=== PATIENT | female | born 1980 | race Caucasian/White ===

== ENCOUNTER 2017-06-26 18:31 | Emergency (ER) | payer MEDICAID ==
[~2017-06-26] VITALS: Ht 167.6 cm; Wt 66.0 kg
[~2017-06-26 18:31] MED LIST: IBUP1TAB7 PO; TYLE325T PO
[2017-06-26 18:36] VITALS: BP 140/77; PULSE 83; RESP 16; TEMP 98.1; O2SAT 99
[2017-06-26] MEDS ORDERED: TRAM50 PO (20:08)
[2017-06-26] MEDS ORDERED: CLIN300C5 PO (20:08)
--- NOTE | 2017-06-26 20:09 | PD ---
HPI Chief Complaint: Skin Problem Time Seen by Provider: 19:22 Travel History International Travel<30 days: No Contact w/Intl Traveler<30days: No Traveled to known affect area: No History of Present Illness HPI This is a 36-year-old female here with multiple pustules to her left hand. She reports she had similar episode in her right hand several weeks ago which spontaneously resolved. Over the last 2 days her left fourth digit became more painful and red prompting her visit today. She denies fever chills. No change in sensation or decreased range of motion. Denies any injury or trauma. Symptom severity is moderate. No aggravating or alleviating factors. PFSH Past Medical History Medical History: Denies Significant Hx Cancer: No Cardiovascular Problems: No Diabetes: No Diminished Hearing: No Endocrine: No Genitourinary: No Hepatitis: No Hiatal Hernia: No Immune Disorder: No Musculoskeletal: No Neurologic: No Psychiatric: No Reproductive: Yes Respiratory: No Immunizations Current: Yes Thyroid Disease: No Tetanus Vaccination: Unknown Influenza Vaccination: No ?: Not LMP: 06/07/17 Tubal Ligation: Yes Past Surgical History Abdominal Surgery: No AICD: No Cardiac Surgery: No Section: Yes Ear Surgery: No Endocrine Surgery: No Eye Surgery: No Genitourinary Surgery: No Gynecologic Surgery: Yes (C SECTION X 3) Joint Replacement: No Oral Surgery: No Pacemaker: No Thoracic Surgery: No Other Surgery: Yes Social History Alcohol Use: No Tobacco Use: No Substance Use: No Allergies-Medications (Allergen,Severity, Reaction): Coded Allergies: aspirin (Unverified Allergy, Severe, Anaphylaxis, 06/26/17) ibuprofen (Unverified Allergy, Intermediate, 06/26/17) diclofenac (Unverified Allergy, Unknown, 06/26/17) indomethacin (Unverified Allergy, Unknown, 06/26/17) meloxicam (Unverified Allergy, Unknown, 06/26/17) Reported Meds & Prescriptions Reported Meds & Active Scripts Active Tylenol (Acetaminophen) 325 Mg Tab 650 Mg PO Q6H PRN Reported Ibuprofen 800 Mg Tab 800 Mg PO ONCE PRN Review of Systems Except as stated in HPI: all other systems reviewed are Neg General / Constitutional: No: Fever Eyes: No: Visual changes HENT: No: Headaches Cardiovascular: No: Chest Pain or Discomfort Respiratory: No: Shortness of Breath Gastrointestinal: No: Abdominal Pain Genitourinary: No: Dysuria Musculoskeletal: No: Pain Neurologic: No: Weakness Physical Exam Narrative GENERAL: Alert and well-appearing 36-year-old female SKIN: Warm and dry. Multiple pustules to the left hand HEAD: Normocephalic. EYES: No scleral icterus. No injection or drainage. NECK: Supple, trachea midline. CARDIOVASCULAR: Regular rate and rhythm without murmurs, gallops, or rubs. RESPIRATORY: Breath sounds equal bilaterally. No accessory muscle use. GASTROINTESTINAL: Abdomen soft, non-tender, nondistended. MUSCULOSKELETAL: No cyanosis. Left hand: Multiple pustules to the left ring finger dorsal medial aspect with surrounding erythema and swelling. She is able to flex and extend the digit. Normal sensation. Brisk cap refill. BACK: Nontender without obvious deformity. No CVA tenderness. Data Data Last Documented VS Vital Signs Date Time Temp Pulse Resp B/P (MAP) Pulse Ox O2 Delivery O2 Flow Rate FiO2 06/26/17 18:36 98.1 83 16 140/77 (98) 99 MDM Medical Decision Making Medical Screen Exam Complete: Yes Emergency Medical Condition: Yes Differential Diagnosis Cellulitis, folliculitis, abscess, cellulitis Narrative Course 36-year-old female here with multiple pustules to left hand. She is nontoxic appearing. She has full range of motion of the fingers. Normal sensation. She will be treated with antibiotics. She is instructed to follow-up with her primary doctor. Diagnosis Primary Impression: Cellulitis Qualified Codes: L03.90 - Cellulitis, unspecified Referrals: Primary Care Physician Additional Instructions: Antibiotics as directed. Follow-up with your primary doctor. Return if you have new or worsening symptoms. Scripts Tramadol (Ultram) 50 Mg Tab 50 MG PO Q6H Y for PAIN, #8 TAB 0 Refills Prov: Clarissa Mcdonald 06/26/17 Clindamycin (Clindamycin) 300 Mg Cap 300 MG PO Q6H for Infection for 10 Days, #40 CAP 0 Refills Prov: Clarissa Mcdonald 06/26/17 Disposition: 01 DISCHARGE HOME Condition: Stable Clarissa Mcdonald Jun 26, 2017 20:09
== END 2017-06-26 20:16 | disposition home or self-care (01) ==
LOC: PHEFT 18:31
DX: L03.114 Cellulitis of left upper limb (principal)
CPT/HCPCS: 99283